=== PATIENT | male | born 1950 | race Caucasian/White ===

== ENCOUNTER 2016-04-25 22:10 | Emergency (ER) | payer OTHER, MEDICARE ==
[~2016-04-25] VITALS: Ht 170.2 cm; Wt 88.5 kg
[~2016-04-25 22:10] MED LIST: TAMIFLU 75MG75 MG PO
[2016-04-25 22:21] VITALS: BP 158/102
--- NOTE | 2016-04-25 23:31 | CT SCAN REPORT ---
EXAMINATION: CT HEAD WITHOUT CONTRAST CLINICAL INFORMATION: Dizziness with nausea and vomiting. COMPARISON: None available. TECHNIQUE: Contiguous axial imaging was performed from the skull base to vertex without intravenous administration of contrast. FINDINGS: There is no intracranial hemorrhage, hydrocephalus, extra-axial surface collection, midline shift, or other herniation pattern. Ossification along the anterior falx cerebri. Fish to white matter differentiation is diffusely maintained without evidence of an evolved acute territorial infarct. The basilar cisterns are preserved. No significant soft tissue abnormality. No acute osseous abnormality. The paranasal sinuses and the mastoid air cells are well-aerated. IMPRESSION: No acute intracranial abnormality.
[2016-04-25 23:47] LABS: ABSOLUTE BASOPHIL COUNT 0 /CUMM (0.0-0.2); ABSOLUTE EOSINOPHIL COUNT 0.1 /CUMM (0.0-0.7); ABSOLUTE GRANULOCYTE CT 3.6 /CUMM (1.4-6.5); ABSOLUTE MONOCYTE COUNT 0.6 /CUMM (0.10-0.60); BASOPHIL % 0.5 % (0.0-2.0); EOSINOPHIL % 1.1 % (0-5); GRANULOCYTE % 57.4 % (42.2-75.2); HEMATOCRIT 46.5 % (42-52); MEAN CORPUSCULAR HGB 32.1 PG (27.0-31.0); MEAN CORPUSCULAR VOLUME 89.2 FL (80.0-94.0); MEAN PLATELET VOLUME 8.7 FL (7.4-10.4); PLATELET COUNT 193 /CUMM (130-400); RBC DISTRIBUTION WIDTH 13.6 % (11.5-14.5); RED BLOOD CELL CT 5.21 /CUMM (4.70-6.10); WHITE BLOOD CELL COUNT 6.2 /CUMM (4.8-10.8)
--- NOTE | 2016-04-26 00:46 | ED AMS/SEIZURE/WEAK/DIZZY ---
History of Present Illness General Chief Complaint: Dizziness Stated Complaint: DIZZINESS Source: patient, family, old records Exam Limitations: no limitations Vital Signs & Intake/Output Vital Signs & Intake/Output Vital Signs Date Time Temp Pulse Resp B/P Pulse O2 O2 Flow FiO2 Ox Delivery Rate 04/25 2221 158/102 04/25 2213 96.5 92 20 173/113 97 Room Air ED Intake and Output 04/26 0000 04/25 1200 Intake Total Output Total 1 Balance -1 Output, 1 Emesis Patient 195 lb Weight Allergies Coded Allergies: No Known Allergies (04/25/16) Reconcile Medications Oseltamivir Phosphate (Tamiflu 75MG) 75 MG CAP 1 TAB PO BID INFLUENZA Triage Note: TRIAGE: PT TO ER WITH C/C SUDDEN ONSET DIZZINESS WHILE SITTING DOWN READING APPROXIMATELY 1 HOUR PRIOR TO ARRIVAL. +NAUSEA, VOMITED X 1. DENIES NAUSEA AT PRESENT. STATES "I TOOK AN ANTIHISTAMINE MEDICATION TODAY" AT 12 O'CLOCK "BUT THAT'S NEVER HAPPENED TO ME BEFORE". B/P WAS 140/110 AT HOME. AUTO B/P 173/113 AT TRIAGE. DENIES ANY PAIN. STATES "THINGS SEEM A LITTLE BIT BLURRY BUT I DON'T HAVE MY GLASSES RIGHT NOW". Triage Nurses Notes Reviewed? yes Onset: Just prior to arrival Duration: minute(s):, constant, continues in ED Timing: recent history Injury Environment: home Severity: severe No Modifying Factors: none Modifying Factors: Improves With: rest. Worsens With: movement. HPI: 1 day prior to admission patient complains of sore throat. Prior to admission patient had episode of dizziness followed by nausea vomiting anxiety and is improved. He denies fever chills abdominal pain diarrhea headache dysuria rash bleeding change in hearing. Past History Travel History Traveled to [place] past 21 day No Medical History Any Pertinent Medical History? see below for history Neurological: NONE EENT: NONE Cardiovascular: hypertension, hyperlipidemia Respiratory: NONE Gastrointestinal: GERD Hepatic: NONE Renal: NONE Musculoskeletal: NONE Psychiatric: NONE Endocrine: NONE Blood Disorders: NONE Cancer(s): NONE LEATHER STITCHER/Reproductive: NONE Surgical History Surgical History: N Psychosocial History What is your primary language Turkish Tobacco Use: Quit >30 days ago ETOH Use: occasional use Illicit Drug Use: denies illicit drug use Family History Hx Contributory? No Review of Systems Review of Systems Constitutional: Reports: see HPI, malaise. EENTM: Reports: see HPI, throat pain. Respiratory: Reports: no symptoms. Cardiovascular: Reports: no symptoms. GI: Reports: no symptoms. Genitourinary: Reports: no symptoms. Musculoskeletal: Reports: no symptoms. Skin: Reports: no symptoms. Neurological/Psychological: Reports: see HPI, anxiety. Hematologic/Endocrine: Reports: no symptoms. Immunologic/Allergic: Reports: no symptoms. All Other Systems: Reviewed and Negative Physical Exam Physical Exam General Appearance: well developed/nourished, alert, awake, anxious, moderate distress, obese Head: atraumatic, normal appearance Eyes: Bilateral: normal appearance, PERRL, EOMI. Ears, Nose, Throat: normal pharynx, normal ENT inspection, moist mucus membranes Neck: normal inspection, supple, full range of motion, no midline tenderness Respiratory: normal breath sounds, chest non-tender, no respiratory distress, quiet respiration, lungs clear Cardiovascular: regular rate/rhythm, normal peripheral pulses, norml femoral pulses equa Peripheral Pulses: 4+ carotid (R), 4+ carotid (L) Gastrointestinal: normal bowel sounds, soft, non-tender, no organomegaly Back: normal inspection, normal range of motion Extremities: normal range of motion, no ligament instability Neurologic/Psych: no motor/sensory deficits, awake, alert, oriented x 3, normal gait, normal mood/affect, court transcriber II-XII nml as tested, positive nystagmus Reflexes: 2+: bicep (R), bicep (L). Skin: intact, normal color, warm/dry Lymphatic: no anterior cervical shawna Core Measures ACS in differential dx? No CVA/TIA Diagnosis: No Severe Sepsis Present: No Septic Shock Present: No Progress Differential Diagnosis: anemia, CVA/stroke, drug intoxication, electrolyte imbalance Plan of Care: Orders Procedure Date/time Status TROPONIN LEVEL 04/25 2304 Complete COMPREHENSIVE METABOLIC PANEL 04/25 2304 Complete CBC WITHOUT DIFFERENTIAL 04/25 2304 Complete EKG 04/25 2304 Active Laboratory Tests 04/26/16 0040: Anion Gap 8, Estimated GFR > 60, BUN/Creatinine Ratio 16.3, Glucose 123 H, Calcium 9.8, Total Bilirubin 1.0, AST 23, ALT 42, Alkaline Phosphatase 61, Troponin I < 0.01, Total Protein 6.7, Albumin 4.2, Globulin 2.5, Albumin/ Globulin Ratio 1.7 04/25/16 2335: CBC w Diff NO MAN DIFF REQ, RBC 5.21, MCV 89.2, MCH 32.1 H, RDW 13.6, MPV 8.7, Gran % 57.4, Lymphocytes % 31.5, Monocytes % 9.5 H, Eosinophils % 1.1, Basophils % 0.5, Absolute Granulocytes 3.6, Absolute Lymphocytes 2.0, Absolute Monocytes 0.6, Absolute Eosinophils 0.1, Absolute Basophils 0, PUBS MCHC 36.0 Diagnostic Imaging: Viewed by Me: CT Scan. Discussed w/RAD: CT Scan. Radiology Impression: no acute abnormality Initial ED EKG: normal axis, normal intervals, normal p-waves, normal QRS complex, normal sinus rhythm, no ST T wave changes Rhythm Strip: normal sinus rhythm Departure Departure Time of Disposition: 212 Disposition: HOME OR SELF CARE Condition: Stable Clinical Impression Primary Impression: Vertigo Secondary Impressions: Nausea and vomiting Qualifiers: Vomiting type: unspecified Vomiting Intractability: non-intractable Qualified Code: R11.2 - Nausea with vomiting, unspecified Referrals: ISABELLE PENDLETON,ADELINE Camacho (PCP/Family) Departure Forms: Customer Survey General Discharge Information Prescriptions: Current Visit Scripts Scopolamine Hydrobromide (Transderm-Scop) 1 PAT TOP Q3D #4 PAT apply to the hairless area behind 1 ear reapply every 3 days as needed Meclizine HCl 1 TAB PO TIDPRN #30 TAB Ondansetron (Zofran Odt) 1 TAB SL TID PRN nausea #15 TAB
[2016-04-26] MEDS ORDERED: TRANSDERM-SCOP1 EACH TOP (02:15)
[2016-04-26] MEDS ORDERED: MECLIZINE HCL25 MG PO (02:15)
[2016-04-26] MEDS ORDERED: ZOFRAN ODT4 M1 SL (02:15)
== END 2016-04-26 02:26 ==
LOC: ERH 22:10
PROVIDERS: Emergency Medicine
DX: R42 Dizziness and giddiness (principal)
CPT/HCPCS: 93005; 93010; 96361; 96374; 96375; J2405